=== PATIENT | male | born 1985 | race Caucasian/White ===

== ENCOUNTER 2019-11-20 11:34 | Emergency (ER) | payer BC, OTHER ==
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
--- NOTE | 2019-11-20 12:22 | XRAY ---
Indication: Pain. No known injury. Comparison: None 3 view right hand obtained. No bony, articular, or soft tissue abnormalities.
[2019-11-20 13:06] VITALS: BP 127/69; PULSE 82; O2SAT 98
== END 2019-11-20 13:05 | disposition home or self-care (01) ==
LOC: ED 11:34
DX: M77.9 Enthesopathy, unspecified (principal)
CPT/HCPCS: 73130; 99283

== ENCOUNTER 2022-10-03 14:02 | Emergency (ER) | payer OTHER ==
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
[2022-10-03 14:44] LABS: BASOPHIL % 0.9 % (0.0-0.4); Basophil (Absolute #) 0.09 x10^3/uL (0-0.4); Eosinophil % 2.9 % (0.00-5.0); Hematocrit 46.3 % (42-50); Hemoglobin 15.7 g/dL (12.5-18.0); IMMATURE GRAN # 0.03 x10^3u/L (0.00-0.03); IMMATURE GRAN % 0.3 % (0.00-0.4); Lymphocyte (Absolute #) 2.48 x10^3/uL (1.0-4.6); Lymphocytes % 23.7 % (24.0-44.0); Mean Cell Volume 90.1 fL (78-100); Mean Corpuscular Hemoglobin 30.5 pg (26-32); Mean Corpuscular Hgb Concent. 33.9 g/dL (32-36); Mean Platelet Volume 11.4 fL (7.5-11.0); Monocyte (Absolute #) 0.76 x10^3/uL (0.0-1.3); Monocytes % 7.3 % (0.0-12.0); Neutrophil % 64.9 % (36.0-66.0); Platelet Count 273 x10^3/uL (150-450); Red Blood Count 5.14 x10^6/uL (4.1-5.6); Red Cell Distribution Width 11.9 % (11.5-14.0); White Blood Count 10.5 x10^3/uL (4.0-10.5)
[2022-10-03 14:54] LABS: ALBUMIN 4.5 g/dL (3.5-5.0); ALKALINE PHOSPHATASE 63 U/L (38-126); AMYLASE 68 U/L (30-110); ANION GAP 14.9 MEQ/L (5-15); BLOOD UREA NITROGEN 15 mg/dL (9-20); CHLORIDE 106 mmol/L (98-107); Calcium 9.1 mg/dL (8.4-10.2); Carbon Dioxide 23 mmol/L (22-30); Creatinine 1 0.96 mg/dL (0.66-1.25); EST GLOMERULAR FILTRATION RATE > 60.0 ML/MIN; Glucose 95 mg/dL (74-106); LIPASE 89 U/L (23-300); Potassium 4.3 mmol/L (3.5-5.1); SGOT/AST 30 U/L (17-59); SGPT/ALT 32 U/L (0-50); SODIUM 140 mmol/L (137-145); Total Protein 7.6 g/dL (6.3-8.2)
[2022-10-03 15:20] LABS: INFLUENZA A NEGATIVE (NEGATIVE); INFLUENZA B NEGATIVE (NEGATIVE); RESPIRATORY SYNCTIAL VIRUS NEGATIVE (NEGATIVE); SARS-CoV-2 Xpert Express NEGATIVE (NEGATIVE)
[2022-10-03] MEDS ORDERED: Sodium Chloride 0.9% 1000 ML 1,000 ML IV STA (15:59)
[2022-10-03] MEDS ORDERED: Sodium Chloride 0.9% 1000 ML 1,000 ML ONE (15:59)
--- NOTE | 2022-10-03 16:39 | XRAY ---
Indication: Cramping and bloody stools 2 days. Multiple contiguous axial images obtained through the abdomen and pelvis without contrast. Comparison: None Lung bases clear with incidental tiny left lower lobe calcified granuloma. Heart not enlarged. Noncontrasted stomach and bowel loops appear nonobstructed with normal appearing appendix. No free fluid/air. Remaining liver, gallbladder, pancreas, spleen, adrenal glands, kidneys, ureters, bladder, and aorta are unremarkable for noncontrast exam. Osseous structures intact. No ventral or inguinal hernias. Impression: Normal CT abdomen/pelvis without contrast exam.
[2022-10-03 17:24] VITALS: BP 125/77; PULSE 61; O2SAT 98
== END 2022-10-03 17:38 | disposition home or self-care (01) ==
LOC: ED 14:02
DX: K52.9 Noninfective gastroenteritis and colitis, unspecified (principal); K62.5 Hemorrhage of anus and rectum; Z20.828 Contact with and (suspected) exposure to other viral communicable diseases
CPT/HCPCS: 0241U; 36000; 36415; 74176; 80053; 82150; 83605; 83690; 85025; 96360; 99284

== ENCOUNTER 2022-11-02 05:41 | Day surgery (SDC) | payer OTHER ==
[2022-11-02] MEDS ORDERED: Lactated Ringers 1,000 ML IV SCH (06:30)
[2022-11-02] MEDS ORDERED: Versed 2 MG/2 ML Injection ONE (07:25)
[2022-11-02] MEDS ORDERED: Xylocaine-Mpf 2% 5 Ml Vial ONE (07:25)
[2022-11-02] MEDS ORDERED: DIPRIVAN 200 MG/20 ML IV ONE (07:25)
[2022-11-02 09:01] VITALS: BP 119/67; PULSE 52; O2SAT 100
--- NOTE | 2022-11-02 09:26 | OP ---
SURGERY DATE/TIME: 11/02/2022 0739 PREOPERATIVE DIAGNOSES: 1) Gastroesophageal reflux. 2) Rectal bleeding. POSTOPERATIVE DIAGNOSES: 1) Moderate gastritis. 3) Normal colon. PROCEDURES: 1) Esophagogastroduodenoscopy with cold forceps biopsy. 2) Colonoscopy. SURGEON: Dr. Del Real. ANESTHESIA: Medications were given by the anesthesia department. HISTORY: The patient is a 37-year-old white male patient presenting now for complaints of epigastric pain and reflux. He also has noted some bright red blood in the stool after passing bowel movements for a couple of days a few weeks ago. The patient has had no recurrence of bleeding since that time. The patient is felt to need to have endoscopic evaluation. He was appraised of the risks of the procedure including the risk of perforation, phlebitis, untoward reaction to medication, bleeding and missed lesions. The patient verbalized his understanding and desired to have the procedure performed. DESCRIPTION OF PROCEDURE: The patient was given the medications by the anesthesia department. He had continuous pulse oximetry, ECG monitoring and intermittent blood pressure monitoring during the examination. He was placed in the left lateral decubitus position. A bite block was placed. The flexible Olympus gastroscope was used to intubate the oropharynx. A view of the larynx was obtained and was normal. The scope was easily introduced in the esophagus which appeared to be normal throughout its length. The stomach was entered where normal gastric rugal folds were seen and these distended nicely with insufflation of air. The scope was passed along the greater curvature of the stomach to the antrum. There was moderate inflammation noted. No erosions or ulcerations. The pylorus was encountered and intubated. The duodenum inspected and found to be normal. The scope is withdrawn towards the stomach. Again a retroflex view of the lesser curvature, fundus and cardia regions of the stomach were essentially normal. The scope was redirected towards the gastric antrum and biopsies were obtained to rule out the presence of Helicobacter pylori-type organism to confirm the presence of gastritis. The scope was then removed from the patient. Next, a digital rectal examination was performed and revealed normal anal sphincter tone and no masses and normal prostate. The flexible Olympus pediatric colonoscope was used to intubate the rectum. A view of the colon was developed sequentially to the cecum including approximately 20 cm into the terminal ileum. Upon insertion and withdrawal including retroflex view in the rectum, no mucosal lesions were encountered. The scope was removed from the patient who tolerated the procedure well and was sent to OP recovery in good condition. The prep was noted to be good.
== END 2022-11-02 09:10 | disposition home or self-care (01) ==
LOC: SDC 05:41
PROVIDERS: ATTEND Family Medicine
DX: K29.70 Gastritis, unspecified, without bleeding (principal); K21.9 Gastro-esophageal reflux disease without esophagitis; K62.5 Hemorrhage of anus and rectum
CPT/HCPCS: 88305; J2250; J2704